=== PATIENT | male | born 1960 | race Hispanic/Latino ===

== ENCOUNTER 2017-05-27 01:11 | Emergency (ER) | payer MEDICAID ==
[2017-05-27 03:04] LABS: Basophils # (Auto) 0.1 K/mm3 (0.0-0.1); Basophils % (Auto) 2.1 % (0.0-1.8); Eosinophils # (Auto) 0.2 K/mm3 (0.0-0.4); Hematocrit 37.3 % (35.5-45.6); Hemoglobin 12.7 gm/dl (11.8-15.2); Lymphocytes # (Auto) 1.2 K/mm3 (1.2-5.4); Lymphocytes % (Auto) 19.4 % (13.4-35.0); Mean Corpuscular HGB Conc 34 % (32-34); Mean Corpuscular Hemoglobin 33 pg (28-32); Mean Corpuscular Volume 95 fl (84-94); Monocytes # (Auto) 0.9 K/mm3 (0.0-0.8); Monocytes % (Auto) 14.5 % (0.0-7.3); Platelet Count 192 K/mm3 (140-440); Red Blood Count 3.92 M/mm3 (3.65-5.03); Red Cell Distribution Width 13.7 % (13.2-15.2)
[2017-05-27 03:24] LABS: Alanine Aminotransferase 52 units/L (7-56); Albumin 2.3 g/dL (3.9-5); BUN/Creatinine Ratio 15; Blood Urea Nitrogen 17 mg/dL (9-20); Calcium 7.9 mg/dL (8.4-10.2); Hemolysis Index 30
[2017-05-27 03:29] LABS: Bilirubin,Urine NEG (Negative); Blood,Urine MOD (Negative); Color,Urine Yellow (Yellow); Hyaline Casts,Urine 1 /LPF; Mucus,Urine FEW /HPF; Nitrite,Urine NEG (Negative); Urobilinogen,Urine < 2.0 mg/dL (<2.0)
[2017-05-27] MEDS ORDERED: NORMODYNE IV ONE (13:26)
--- NOTE | 2017-05-27 14:01 | Emergency Department Report ---
HPI - General Chief Complaint: Abdominal Pain Time Seen by Provider: 05/27/17 13:24 - HPI HPI: The patient is a 56-year-old male who presents for evaluation of upper abdominal pain and chest pain for the past 12 hours, crampy and tight in quality , mild, currently 5/10 in severity, exacerbated with movement. He admits to consuming alcohol last night prior to me brought in by local PD. The patient denies fever, neck pain, dyspnea, cough, hemoptysis, syncope, vomiting, diarrhea , dysuria, flank pain, unilateral leg swelling, calf muscle pain, history of DVT or PE, recent immobilization, or history of cancer. ED Past Medical Hx - Past Medical History Hx Hypertension: Yes Hx Liver Disease: Yes (cirrhosis, hep C) - Social History Smoking Status: Current Every Day Smoker Substance Use Type: Alcohol - Medications Home Medications: Home Medications Medication Instructions Recorded Confirmed Last Taken Type amLODIPine [Norvasc] 5 mg PO DAILY #31 tab 05/27/17 Unknown Rx ED Review of Systems ROS: Stated complaint: HIGH BP Other details as noted in HPI Constitutional: denies: fever ENT: denies: throat or neck pain Respiratory: denies: cough, shortness of breath Cardiovascular: reports chest pain Endocrine: denies unexplained weight loss or gain Gastrointestinal: reports abdominal pain, nausea Genitourinary: denies: dysuria Musculoskeletal: denies: leg swelling Skin: denies: rash Neurological: denies: headache Hematological/Lymphatic: denies: easy bleeding or easy bruising Psych: denies sadness or hopelessness Physical Exam - Physical Exam Vital Signs: Vital Signs 05/27/17 05/27/17 05/27/17 01:30 01:59 10:15 Temperature 97.8 F 97.8 F 97.7 F Pulse Rate 100 H 91 H 94 H Respiratory 18 20 16 Rate Blood Pressure 172/95 172/95 197/107 Blood Pressure [Right] O2 Sat by Pulse 97 97 98 Oximetry 05/27/17 13:55 Temperature Pulse Rate 102 H Respiratory 18 Rate Blood Pressure Blood Pressure 184/97 [Right] O2 Sat by Pulse 100 Oximetry Physical Exam: General: well-nourished, well-developed, no acute distress Head: Normocephalic, atraumatic Eyes: normal sclera ENT: Mucous membranes are pale and dry Neck: No neck stiffness, no cervical adenopathy Respiratory: Breath sounds equal bilaterally, no wheezing, rales, or rhonchi Cardio: S1 and S2 present, no murmurs, rubs, gallops, capillary refill is delayed Abdomen: Normoactive bowel sounds, soft abdomen, upper quadrant tenderness to palpation present, no rigidity, no guarding or rebound tenderness Chest WALL/Back: No tenderness to palpation of the chest wall, no CVA tenderness with percussion Musc: No pitting edema Skin: No rash Neuro: no facial drooping, normal speech Psych: Normal affect ED Course Vital Signs 05/27/17 05/27/17 05/27/17 01:30 01:59 10:15 Temperature 97.8 F 97.8 F 97.7 F Pulse Rate 100 H 91 H 94 H Respiratory 18 20 16 Rate Blood Pressure 172/95 172/95 197/107 Blood Pressure [Right] O2 Sat by Pulse 97 97 98 Oximetry 05/27/17 13:55 Temperature Pulse Rate 102 H Respiratory 18 Rate Blood Pressure Blood Pressure 184/97 [Right] O2 Sat by Pulse 100 Oximetry ED Medical Decision Making - Lab Data Result diagrams: 05/27/17 02:38 05/27/17 02:38 - Medical Decision Making The patient was seen and examined by myself. The patient is placed on a library monitor and continuous pulse ox. On initial evaluation, the patient was found to be in no distress. Evaluation orders are placed. The patient declined IV fluids for treatment of his dehydration. He was given IV labetalol for treatment of elevated blood pressure and a tablet of Motrin for treatment of this pain. 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 Otherwise labs are grossly unremarkable including WBC, hemoglobin, hematocrit, renal function. The patient was reevaluated and reported that their symptoms were markedly improved. A repeat alcohol level reveals that EtOH is now within normal limits. The patient is stable for discharge with outpatient follow-up. The patient is given follow-up and return instructions. The patient expressed understanding and agreed with the plan. The patient is discharged in stable condition. Critical care attestation.: If time is entered above; I have spent that time in minutes in the direct care of this critically ill patient, excluding procedure time. ED Disposition Clinical Impression: Abdominal pain, acute, left upper quadrant, Dehydration, Hypertensive urgency Alcohol intoxication Qualifiers: Complication of substance-induced condition: uncomplicated Qualified Code(s): F10.920 - Alcohol use, unspecified with intoxication, uncomplicated Disposition: DC-01 TO HOME OR SELFCARE Is pt being admited?: No Does the pt Need Aspirin: No Condition: Stable Instructions: Alcohol Intoxication (ED), Abdominal Pain (ED), Hypertension (ED) Prescriptions: amLODIPine [Norvasc] 5 mg PO DAILY #31 tab Referrals: PRIMARY CARE, [Primary Care Provider] - 3-5 Days Time of Disposition: 13:58
[2017-05-27 14:35] VITALS: BP 187/88
[2017-05-27] MEDS ORDERED: MOTRIN PO ONE (14:57)
== END 2017-05-27 14:37 | disposition home or self-care (01) ==
LOC: ED 01:11
DX: R10.12 Left upper quadrant pain (principal); E86.0 Dehydration; F10.920 Alcohol use, unspecified with intoxication, uncomplicated; I16.0 Hypertensive urgency; I10 Essential (primary) hypertension; F17.200 Nicotine dependence, unspecified, uncomplicated; K74.60 Unspecified cirrhosis of liver; Z86.19 Personal history of other infectious and parasitic diseases
CPT/HCPCS: 36415; 80053; 81001; 85025; 96374; 99284; G0480; 80320